=== PATIENT | female | born 1980 | race African-American/Black ===

== ENCOUNTER 2016-12-02 06:41 | Inpatient (IN) | payer BC ==
[~2016-12-02] VITALS: Ht 160 cm; Wt 70.8 kg
[2016-12-02] VITALS (8 sets, daily range): BP systolic 92–121; BP diastolic 45–68; TEMP 97.9–98.4; Ht 160 cm; Wt 70.8 kg
[2016-12-02 07:59] LABS: PLATELET COUNT 210 K/uL (152-353)
[2016-12-02 08:06] LABS: POTASSIUM 3.9 mmol/L (3.6-5.2); SODIUM 137 mmol/L (136-145)
[2016-12-03] VITALS: BP 97/43; TEMP 97.9
[2016-12-03 04:00] VITALS: BP 92/68; TEMP 98.2
[2016-12-03 05:29] LABS: PLATELET COUNT 190 K/uL (152-353)
[2016-12-03 05:38] LABS: POTASSIUM 3.5 mmol/L (3.6-5.2); SODIUM 139 mmol/L (136-145)
[2016-12-03 08:00] VITALS: BP 89/50; TEMP 98.5
[2016-12-03 12:00] VITALS: BP 98/61; TEMP 98.1
--- NOTE | 2016-12-03 15:00 | NUR ---
D/C INSTRUCTIONS GIVEN TO PT WITH RX ATTACHED. PT INFORMED TO FOLLOW UP WITH A PCP WITHIN 3 -5 DAYS. IV D/C'D CATH TIP INTACT.
== END 2016-12-03 15:30 | disposition home or self-care (01) | DRG 389 ==
LOC: ED 06:41 → MED/SURG 10:15
PROVIDERS: Emergency Medicine; Specialist
DX: K56.69 Other intestinal obstruction (principal); N39.0 Urinary tract infection, site not specified; R10.84 Generalized abdominal pain
CPT/HCPCS: 36415; 43754; 80053; 81002; 81025; 82150; 83690; 83735; 85027; 96361; 96365; 96367; 96372; 96374; 96375; 99284; J0744; J1650; J1885; J2175; J2405; J3490